=== PATIENT | female | born 1995 | race Hispanic/Latino ===

== ENCOUNTER 2020-07-11 14:05 | Outpatient (CLI) | payer OTHER ==
[2020-07-12 01:47] LABS: SARS-CoV-2 PCR by NAA Not Detected (NotDetected)
== END 2020-07-11 14:06 | disposition home or self-care (01) ==
LOC: CSHLAB 14:05
PROVIDERS: ATTEND Obstetrics & Gynecology
DX: Z20.822 Contact with and (suspected) exposure to COVID-19 (principal)
CPT/HCPCS: 87635; U0003; U0005